=== PATIENT | male | born 1990 | race Caucasian/White ===

== ENCOUNTER 2020-04-10 18:51 | Outpatient (REF) | payer OTHER, SELFPAY ==
[2020-04-10 14:06] LABS: Calculated LDL 76 mg/dL (<100); Cholesterol 149 mg/dL (<200); HDL Cholesterol 59 mg/dL (40-60); Triglyceride 72 mg/dL (<150)
[2020-04-13 13:30] LABS: Testosterone, Free 20.1 ng/dL (4.85-19.0); Testosterone, Total 957 ng/dL (240-950)
== END 2020-04-10 19:11 ==
LOC: NCHCN 18:51
PROVIDERS: Visit Provider Family Medicine
DX: Z00.8 Encounter for other general examination (principal)
CPT/HCPCS: 80061; 84402; 84403

== ENCOUNTER 2022-11-25 21:18 | Outpatient (REF) | payer OTHER, SELFPAY ==
[2022-11-25 21:55] LABS: ESR 2 mm/hr (0-15)
[2022-11-25 21:56] LABS: Abs Immature Grans 0.04 10^3/uL (0.0-0.06); Absolute Basophil Count 0.08 10^3/uL (0.0-0.2); Absolute Eosinophil Count 0.17 10^3/uL (0.0-0.7); Absolute Lymphocyte Count 1.83 10^3/uL (1.2-3.4); Absolute Monocyte Count 0.68 10^3/uL (0.1-0.8); Absolute Neutrophil Count 5.31 10^3/uL (1.2-6.7); Eosinophils % 2.1; HGB 16.3 g/dL (13.5-17.5); Immature Grans % 0.5; Lymphocytes % 22.6; MCH 32.3 pg (27.0-33.0); MCHC 35.4 % (32.0-36.0); MCV 91 fL (80-95); MPV 10.7 fL (8.0-11.0); Monocytes % 8.4; Neutrophils % 65.4; Platelet Count 242 10^3/uL (130-400); RBC 5.05 10^6/uL (4.36-5.78); RDW-SD 37.1 fL; WBC 8.11 10^3/uL (4.4-10.8)
[2022-11-25 22:16] LABS: ALT 57 U/L (16-63); AST 44 U/L (15-37); Albumin 4.6 g/dL (3.4-5.0); Alkaline Phosphatase 64 U/L (46-116); Anion Gap 7.8 mmol/L (3-11); BUN 20 mg/dL (7-18); Bilirubin, Total 0.8 mg/dL (0.2-1.0); CO2 28.2 mmol/L (21.0-32.0); CREATININE 1.2 mg/dL (0.70-1.30); Calcium 9.6 mg/dL (8.5-10.1); Chloride 102 mmol/L (98-107); Estimated GFR 81.89 (mL/min/1.73m2); Glucose 95 mg/dL (74-106); Potassium 4.3 mmol/L (3.5-5.1); Sodium 138 mmol/L (136-145); Total Protein 7.7 g/dL (6.4-8.2)
[2022-11-30 12:51] LABS: IgA 189 mg/dL (85-499); Interpretation (See Note); Tissue Transglutaminase IgA <1.2 U/mL (<4.0)
== END 2022-11-25 21:19 | disposition home or self-care (01) ==
LOC: NCHCN 21:18
PROVIDERS: Visit Provider Family Medicine
DX: R19.7 Diarrhea, unspecified (principal)
CPT/HCPCS: 80053; 82784; 83516; 85652; 85025

== ENCOUNTER 2022-12-17 16:42 | Outpatient (REF) | payer OTHER, SELFPAY ==
[2022-12-21 19:23] LABS: Calprotectin <50.0 mcg/g
== END 2022-12-17 16:43 | disposition home or self-care (01) ==
LOC: NCHCN 16:42
PROVIDERS: Visit Provider Nurse Practitioner Adult Health
DX: R19.7 Diarrhea, unspecified (principal)
CPT/HCPCS: 83993

== ENCOUNTER 2024-06-26 14:22 | Outpatient (REF) | payer BC, SELFPAY ==
[2024-06-26 14:30] LABS: Abs Immature Grans 0.02 10^3/uL (0.0-0.06); Absolute Basophil Count 0.05 10^3/uL (0.0-0.2); Absolute Eosinophil Count 0.09 10^3/uL (0.0-0.7); Absolute Lymphocyte Count 1.14 10^3/uL (1.2-3.4); Basophils % 0.6 %; HCT 46.3 % (40.0-50.0); HGB 15.9 g/dL (13.5-17.5); Immature Grans % 0.2 %; Lymphocytes % 13.3 %; MCH 31.5 pg (27.0-33.0); MCHC 34.3 % (32.0-36.0); MCV 92 fL (80-95); MPV 10.6 fL (8.0-11.0); Monocytes % 5.8 %; Neutrophils % 79.1 %; Platelet Count 187 10^3/uL (130-400); RBC 5.05 10^6/uL (4.36-5.78); RDW 11.5 % (11.8-14.1); RDW-SD 38.7 fL
[2024-06-26 15:34] LABS: ALT 54 U/L (16-63); AST 32 U/L (15-37); Albumin 4.5 g/dL (3.4-5.0); Alkaline Phosphatase 56 U/L (46-116); Anion Gap 10.8 mmol/L (3-11); BUN 16 mg/dL (7-18); Bilirubin, Total 0.9 mg/dL (0.2-1.0); CO2 28.2 mmol/L (21.0-32.0); CREATININE 0.9 mg/dL (0.70-1.30); Calcium 9.5 mg/dL (8.5-10.1); Chloride 104 mmol/L (98-107); Estimated GFR 114.22 (mL/min/1.73m2); Glucose 86 mg/dL (74-106); Potassium 4.2 mmol/L (3.5-5.1); Sodium 143 mmol/L (136-145); TSH (W/Ref FT4) 1.53 uIU/mL (0.36-3.74); Total Protein 7.6 g/dL (6.4-8.2); Vitamin D 25 Total 19 ng/mL (30-100)
[2024-07-03 15:26] LABS: Testosterone, Free 9.56 ng/dL (4.65-18.1); Testosterone, Total 518 ng/dL (240-950)
== END 2024-06-26 14:23 | disposition home or self-care (01) ==
LOC: NCHCN 14:22
PROVIDERS: PCP Family Medicine; Visit Provider Family Medicine
DX: R53.83 Other fatigue (principal)
CPT/HCPCS: 80053; 82306; 84402; 84403; 84443; 85025

== ENCOUNTER 2024-12-26 21:14 | Outpatient (REF) | payer BC, SELFPAY ==
[2024-12-27 19:46] LABS: Hepatitis C Ab w Rflx HCV PCR Negative (Negative)
[2024-12-27 19:47] LABS: HIV-1/2 Ag & Ab Screen Negative (Negative)
[2024-12-28 11:17] LABS: Syphilis Serology (RPR) Negative (Negative)
[2024-12-29 10:12] LABS: HSV Type 2 Ab, IgG Negative (Negative)
== END 2024-12-26 21:15 | disposition home or self-care (01) ==
LOC: NCHCN 21:14
PROVIDERS: PCP Family Medicine; Visit Provider Family Medicine
DX: Z11.59 Encounter for screening for other viral diseases (principal)
CPT/HCPCS: 86803; 87389; 86592; 86695; 86696